=== PATIENT | female | born 1970 | race Caucasian/White ===

== ENCOUNTER → 2016-07-04 | Day surgery (SDC) | payer OTHER ==
[2014-07-19 15:42] VITALS: BMI 34.4
[~2016-07-04] MED LIST: CEFAZOLIN 1 GM VIAL ONE; DEXAMETHASONE 4 MG/ML VIAL IV ONE; FENTANYL 100 MCG/2 ML VIAL IV ONE; FENTANYL 100 MCG/2 ML VIAL IV PRN; HYDROmorphone 1 MG INJECTION IV PRN; KETOROLAC TROMETH 30 MG/ML VIAL IM ONE; LABETALOL 20 MG/4 ML SYRINGE IV PRN; LIDOCAINE 100 MG PFS IV ONE; MEPERIDINE 25 MG/ML TUBEX IV PRN; MIDAZOLAM 2 MG/2 ML VIAL IV ONE; ONDANSETRON HCL 4 MG ODT TAB PO PRN; ONDANSETRON HCL 4 MG/2 ML VIAL IV ONE; ONDANSETRON HCL 4 MG/2 ML VIAL IV PRN; OXYCODONE HCL 5 MG TABLET ONE; PROPOFOL 200 MG/20 ML VIAL IV ONE; SCOPOLAMINE TRANSDERMAL PATCH TOP ONE; hydrALAZINE 20 MG/ML VIAL IV PRN
--- NOTE | 2016-07-04 07:00 | HIM.ANES ---
Anesthesia Evaluation & Plan Diagnoses: EXCESSIVE AND FREQUENT MENSTRUATION WITH IRREGULAR CYCLE (07/04/16) Consented Procedure: hysteroscopy dilation and curettage and endometrial ablation using the Novasure method - Focused Review of Systems Cardiac History: Yes: Hx Hypertension, Hx Cardiac Disorders, Hx Abnormal Cholesterol/Hyperlipidemia HEENT: Yes: Hx Vision Problem (READING GLASSES), Other HEENT Problems Hx Other HEENT Problems: ALLERGIC RHINNITIS Gastrointestinal: Yes: Hx Gastrointestinal Disorders, Hx Colonoscopy (10/2011 DIVERTICULOSIS) Neurological/Musculoskeletal: Yes: Hx Migraine, Hx Neurological Disorders Psychological: Yes Hx Anxiety, Yes Hx Depression, Yes Hx Mental/Emotional Disorders HX Other Psyco/Soc Problems: DEPRESSION Blood/Autoimmune: No: Hx AIDS, Hx Hepatitis (type) Smoking Status: Heavy tobacco smoker (5 or more cigarettes/day or daily pipe/ cigar) Other Surgical History: BTL 1995 - Focused Physical Exam NPO since: 07/03/162099 Mallampati: Class II Thyromental Distance: Greater than 3 Neck: Full Range of Motion Dental: Removable Dental Work Cardiovascular/Chest: Normal Respiratory: Lungs clear Any problems with anesthesia, including nausea and vomiting?: Yes (SEVERE N& V... WOKE UP DURRING COLONOSCOPY) Any relatives with a history of Malignant Hyperthermia?: No Beta Rich given (if appropriate): No Does the patient have a history of Motion Sickness-: No Other: Problem List Problem Status Onset Ankle sprain Acute Dysfunctional uterine bleeding Acute Allergies Allergy/AdvReac Type Severity Reaction Status Date / Time aspirin Allergy Mild Unknown/See Verified 07/04/16 06:34 Comments sumatriptan [From Imitrex] Allergy Mild Unknown/See Verified 07/04/16 06:34 Comments sumatriptan succinate Allergy Mild Unknown/See Verified 07/04/16 06:34 [From Imitrex] Comments triamcinolone acetonide Allergy Mild Nausea/Vomi Verified 07/04/16 06:34 [From Kenalog] ting prednisone Allergy Unknown Rash-Genera Verified 07/04/16 06:34 lized Home Medications Medication Instructions Recorded Last Taken Type Tramadol HCl [Ultram] 50 - 100 mg PO Q8H PRN 11/13/13 07/01/16 History Metoprolol Succinate [Toprol Xl] 25 mg PO DAILY 07/19/14 07/03/16 History Dicyclomine HCl [Bentyl] 20 mg PO Q6H PRN 07/01/16 Unknown History Duloxetine [Cymbalta] 60 mg PO DAILY 07/01/16 07/03/16 History Ibuprofen 400 mg PO Q4-6H PRN 07/01/16 07/03/16 History Lisinopril 20 mg PO DAILY 07/01/16 07/03/16 History Montelukast Sodium [Singulair] 10 mg PO DAILY 07/01/16 1 Week Ago History Height and Weight Patient's height 5 ft 7 in Patient's weight 83.915 kg BMI 34.4 Vital Signs Temperature 97.3 F L 07/04/16 06:29 Pulse Rate 61 07/04/16 06:29 Respiratory Rate 16 07/04/16 06:29 Blood Pressure 114/83 07/04/16 06:29 Pulse Oxygen Saturation 96 07/04/16 06:29 - Anesthetic Plan Anesthesia Type: General ASA Class: 2 -: I have examined this patient and reviewed the medical record. The patient has been assessed prior to anesthesia. Risks and benefits of anesthesia and anesthetic technique options have been discussed and all questions answered. The patient accepts the risk and desires me to proceed with the planned anesthetic.
--- NOTE | 2016-07-04 08:01 | HIMOPNOTE ---
DATE OF PROCEDURE: 07/04/16 PRE/POSTOP DIAGNOSIS: menorrhagia post op, menorrhagia, endometrial polyp IF CANCER: CLINICAL STAGE: T [] N [] M []; Group Stage:[] PROCEDURE: hysteroscopy, myosure polyp resection, novasure endometrial ablation FINDINGS: endometrial polyp, normal endometrial cavity SPECIMEN REMOVED: endometrial polyp EBL: 5 ml TYPE OF ANESTHESIA: general COMPLICATIONS: none NAME OF SURGEON/ASSISTANTS: Alessio Mckeon MD
--- NOTE | 2016-07-04 08:07 | HIMOPRPT ---
DATE OF PROCEDURE: 07/04/16 PREOPERATIVE DIAGNOSIS: menorrhagia post op, menorrhagia, endometrial polyp POSTOPERATIVE DIAGNOSIS: menorrhagia post op, menorrhagia, endometrial polyp PROCEDURE: hysteroscopy, myosure polyp resection, novasure endometrial ablation SURGEON: Alessio Mckeon MD ANESTHESIOLOGIST: Xavi ANESTHESIA: general ESTIMATED BLOOD LOSS: 5 ml COMPLICATIONS: none DRAINS: none SPECIMENS: endometrial polyp FINDING: endometrial polyp, normal endometrial cavity INDICATIONS FOR PROCEDURE: excessive and frequent uterine bleeding DESCRIPTION OF PROCEDURE: DATE OF PROCEDURE: 07/04/16 PREOPERATIVE DIAGNOSIS: menorrhagia POSTOPERATIVE DIAGNOSIS: menorrhagia PROCEDURE: Cervical dilation, Hysteroscopy, myosure polyp resection, Novasure endometrial ablation. SURGEON: Alessio Mckeon MD. ANESTHESIA: Laryngeal Mask. COMPLICATIONS: None. ESTIMATED BLOOD LOSS: Minimal In/Out: [2000]cc NaCl, [1800]cc FINDINGS: Uterus WNL, retroverted on exam under anesthesia. Normal appearing cavity contour and endometrium, endometrial polyp noted PROCEDURE IN DETAIL: The patient was taken to the operating room and, after successful induction of general anesthesia, she was positioned in [facility]. The perineum and vagina were prepped and draped as a sterile field and the bladder was drained. A weighted speculum and anterior David were placed and the cervix was secured with a long single tooth tenaculum. The cervix and uterus was sounded to 8 cm. Using the sure sound device from the novasure package, the cavity length was measured at 6 cm. The cervix was hydrodilated with the Hysteroscope and the above findings were noted at that time. A medium sized endometrial polyp was immediately noted. A myosure scope was introduced and the polyp was resected in its entirety. The Novasure device was then passed into the cavity and the cavity width was noted to be 4.3 cm. Once the Cavity Integrity Test was performed with no indication of perforation, endometrial ablation was achieved without complication. A power of 142 was used with a procedure time of 1 minute and 33 seconds. The patient was observed and, once all instruments were removed, bleeding was noted to be absent. She was taken down from stirrups, awoken from general anesthesia, and brought to the recovery room in stable condition. All specimens were sent to pathology. Sponge and instrument counts were correct x3.
[2016-07-04] MEDS: FENTANYL 100 MCG/2 ML VIAL ONE ×2 (08:12→08:21)
[2016-07-04 08:37] VITALS: TEMP 97.3
[2016-07-04 09:54] VITALS: PULSE 62
[2016-07-04 13:14] VITALS: BP 144/70
--- NOTE | 2016-07-04 13:14 | SC.ANESPOS ---
Post-Anesthesia Note LOC: Fully Awake Post-Anesthesia Assessment: Awake, Returned to Baseline, Hemodynamically Stable , Pain Control Adequate Phase I & II Recovery Complete: Yes Apparent Anesthesia Complication: No : N PACU Discharge Time: 08:43 - Vital Signs Blood Pressure: 144/70 Pulse: 62 Resp Rate: 18 O2 Sat: 97 Temp: 97.3 F - Comments Anesthesia Discharge Time Report Time 08:43
== END ==
LOC: SDC 05:55
PROVIDERS: ATTEND Obstetrics & Gynecology
PROC: 0UDB8ZX Extraction of Endometrium, Via Natural or Artificial Opening Endoscopic, Diagnostic (ICD-10-PCS; 2016-07-04)
PROC: 0U5B8ZZ Destruction of Endometrium, Via Natural or Artificial Opening Endoscopic (ICD-10-PCS; 2016-07-04)
PROC: 0UBC8ZX Excision of Cervix, Via Natural or Artificial Opening Endoscopic, Diagnostic (ICD-10-PCS; principal; 2016-07-04 07:15)
DX: N92.1 Excessive and frequent menstruation with irregular cycle (principal); N84.0 Polyp of corpus uteri; I10 Essential (primary) hypertension; M79.7 Fibromyalgia; Z87.891 Personal history of nicotine dependence; Z79.899 Other long term (current) drug therapy
CPT/HCPCS: 58563; J0690; J1100; J1885; J2001; J2250; J2405; J3010; J3490